=== PATIENT | female | born 1955 | race Caucasian/White ===

== ENCOUNTER → 2023-11-07 08:44 | Outpatient (REF) | payer MEDICARE, SELFPAY | LOC: WDC 08:44 | PROVIDERS: ATTENDING PHYSICIAN Obstetrics & Gynecology Gynecology; FAMILY PHYSICIAN Family Medicine | DX: Z12.31 Encounter for screening mammogram for malignant neoplasm of breast (principal) | CPT/HCPCS: 77063; 77067 ==

== ENCOUNTER 2024-05-28 21:04 | Emergency (ER) | payer MEDICARE, SELFPAY ==
[2024-05-28 21:12] VITALS: BP 102/88
--- NOTE | 2024-05-28 21:48 | ED.GENMED ---
History of Present Illness
General
Chief Complaint: Chest Pain
Source: patient
Exam Limitations: none
Time Seen by Provider: 05/28/24 21:47
Nursing documentation reviewed up to this point in time: agreed with
History of Present Illness
History of Present Illness:
68 yo female with hypothyroidism presents for a 10-15 minute episode of sharp pain radiated from upper sternum to lower sternum at 8:00 p.m. while riding in car after shopping at [employer]. She denies feeling lightheaded, sweating, feeling nauseous.
The pain subsided and they continued home.
Patient watches her [id number] grandchild 3 days a week.
Past History
Past History
ED Past Medical History: Hypothyroidism
ED Past Surgical History: None
Social History
Tobacco: Non-smoker
Review of Systems
Review of Systems
Allergies reviewed?: Yes
All Other Systems: ROS reviewed and negative except as documented in HPI and ROS
Constitutional: Reports fatigue
Respiratory: Denies trouble breathing
Cardiac: Reports chest pain; Denies diaphoresis or palpitations
ABD/GI: Denies abdominal pain or nausea
: Reports no symptoms
Musculoskeletal: Reports no symptoms
Skin: Reports no symptoms
Neurological: Reports no symptoms
Phy Exam
Physical Exam
Physical Exam:
GENERAL: No acute distress. A&Ox3.
CONSTITUTIONAL: Afebrile.
EYES: clear, conjunctivae normal
ENMT: moist mucus membranes
RESPIRATORY: Regular respirations, nonlabored, lungs clear.
CARDIOVASCULAR: Regular rate and rhythm, no murmurs, no rubs.
GI: Soft, nontender, normal BS
MUSCULOSKELETAL: Chest wall, sternum non tender to palpate. Moves with ease. Well perfused.
SKIN: Warm, dry, pink
PSYCH: Normal mood and affect. Well kept, interactive and appropriate
NEUROLOGIC: Awake, alert and oriented. No focal neurological deficits
Course
Orders/Labs/Results
Orders:
Orders
05/28/24 21:05
EKG [Electrocardiogram (*1)] Urgent
Reason for Study: Chest Pain
EKG- Treatment ONCE
05/28/24 21:57
Complete Blood Count/With Diff Urgent
Comprehensive Metabolic Panel Urgent
Troponin I Urgent
05/28/24 23:26
Troponin I Urgent
Abnormal Lab Results
05/28/24
21:57
MPV 10.8 H fL
(7.4-10.4)
BUN 19 H mg/dl
(7-17)
05/28/24 21:57
05/28/24 21:57
Vital Signs
Initial and Last Documented VS:
Initial Vital Signs
Temp Pulse Resp BP Pulse Ox
97.9 F 74 16 102/88 98
05/28/24 21:12 05/28/24 21:12 05/28/24 21:12 05/28/24 21:12 05/28/24 21:12
Last Documented Vital Signs
Temp Pulse Resp BP Pulse Ox
97.9 F 58 15 129/68 94
05/28/24 21:12 05/28/24 22:45 05/28/24 22:45 05/28/24 22:00 05/28/24 22:45
MDM/Problems Addressed
Differential Diagnosis Includes:
costochodritis, musculoskeletal pain.
MDM/Problems Addressed:
68 yo female with hypothyroidism presents for a 10-15 minute episode of sharp pain radiated from upper sternum to lower sternum at 8:00 p.m. while riding in car after shopping at [employer]. She denies feeling lightheaded, sweating, feeling nauseous.
The pain subsided and they continued home.
Patient watches her [id number] grandchild 3 days a week.
EKG NSR
CBC normal
CMP normal
Troponin #1 and 2 are normal
Stable for discharge.
Referred to Cardiac hotline.
*EKG
EKG Intrepretation Date: 05/28/24
Interpretation: abnormal
Heart Rate: 66
Rate: normal
Rhythm: sinus
[place]: normal axis
Interval: normal interval
QRS Pattern: normal QRS
Ischemia: non-specific ST changes
ED Attending Note
-
Portions of this chart may have been created with voice recognition software.� Occasional wrong word or��sound alike� substitutions may have occurred due to the inherent limitations of voice recognition software.
Discharge Plan
Departure
Referrals:
Eli Hamilton DO [Family Provider] -
Interventions
Interventions:
*Risk Screen - Suicide Last Done: 05/28/24 21:49
*General Assessment Last Done: 05/28/24 21:49
*Neglect/Abuse Screening Last Done: 05/28/24 21:49
*ED- Fall Risk Assessment Last Done: 05/28/24 21:49
*ED COVID-19 Vaccine History Last Done: 05/28/24 21:49
ED- Cardiac Assessment Last Done: 05/28/24 21:49
Discharge Date and Time
Print Language: PASHTO
[2024-05-28 21:49] VITALS: BMI 22.9
[2024-05-28 22:00] VITALS: BP 129/68
[2024-05-28 22:08] LABS: % Basophils 1.9 % (0-2); % Eosinophils 1.4 % (0-6); % Immature Granulocytes 0.3 % (0-0.5); % Lymphocytes 40.4 % (20.5-51.1); % Monocytes 8.4 % (1.7-9.3); % Neutrophils 47.6 % (42.2-75.2); Absolute Basophils 0.1 10^3/uL (0-0.2); Absolute Eosinophils 0.1 10^3/uL (0-0.7); Absolute Lymphocytes 2.4 10^3/uL (1.2-3.4); Absolute Monocytes 0.5 10^3/uL (0.1-0.6); Absolute Neutrophils 2.8 10^3/uL (1.4-6.5); Mean Corp Hgb Conc. 34.2 g/dL (33.0-37.0); Mean Corpuscular Hgb 30.7 pg (27.0-31.0); Mean Corpuscular Volume 89.8 fL (81.0-99.0); Mean Platelet Volume 10.8 fL (7.4-10.4); Nucleated Red Blood Cells % 0 %; Platelet Count 209 10^3/uL (130-400); Red Blood Cell Count 4.23 10^6/uL (4.20-5.40); Red Cell Dist. Width 13.3 % (11.5-14.5); White Blood Cell Count 5.8 10^3/uL (4.8-10.8)
[2024-05-28 22:23] LABS: ALT (SGPT) 17 U/L (0-35); AST (SGOT) 27 U/L (14-36); Albumin 4.1 g/dl (3.5-5.0); Alkaline Phosphatase 89 U/L (38-126); Blood Urea Nitrogen 19 mg/dl (7-17); Calcium 9.7 mg/dl (8.4-10.2); Carbon Dioxide 27 mmol/L (22-30); Chloride 105 mmol/L (98-107); Estimated Creatinine Clearance 65 ml/min; Glucose 90 mg/dl (70-99); Potassium 3.5 mmol/L (3.5-5.1); Sodium 137 mmol/L (135-145); Total Bilirubin 0.6 mg/dl (0.2-1.3); Total Protein 6.3 g/dl (6.3-8.2); eGFR > 60.00
[2024-05-28 22:34] LABS: Troponin I < 0.012 ng/ml
[2024-05-28 23:00] VITALS: BP 131/78
[2024-05-29] VITALS: BP 112/63
[2024-05-29 00:06] LABS: Troponin I < 0.012 ng/ml
== END 2024-05-29 00:31 | disposition home or self-care (01) ==
LOC: EMR 21:04
PROVIDERS: Registered Nurse; EMERGENCY PHYSICIAN Student in an Organized Health Care Education/Training Program; FAMILY PHYSICIAN Family Medicine
DX: R07.89 Other chest pain (principal); E03.9 Hypothyroidism, unspecified
CPT/HCPCS: 99283; 80053; 84484; 85025; 93005

== ENCOUNTER → 2024-11-10 08:28 | Outpatient (REF) | payer MEDICARE, SELFPAY | LOC: WDC 08:28 | PROVIDERS: ATTENDING PHYSICIAN Family Medicine | DX: Z12.31 Encounter for screening mammogram for malignant neoplasm of breast (principal) | CPT/HCPCS: 77063; 77067 ==